=== PATIENT | male | born 1990 | race Caucasian/White ===

== ENCOUNTER 2020-01-15 14:45 | Emergency (ER) | payer OTHER, BC ==
[2020-01-15 15:01] VITALS: BP 136/85; PULSE 71
[2020-01-15] MEDS ORDERED: Diphtheria,Pertussis(Acell),Tetanus Vaccine 0.5 ML SDV IM ONE (15:04)
[2020-01-15] MEDS ORDERED: Doxycycline 100 MG Tab PO ONE (15:05)
[2020-01-15] MEDS ORDERED: Acetaminophen 500 MG Tab PO ONE (15:08)
--- NOTE | 2020-01-15 15:10 | EDM.PDOC ---
ED HPI GENERAL MEDICAL PROBLEM - General Chief Complaint: Laceration Stated Complaint: CUT FINGER Time Seen by Provider: 01/15/20 15:00 Source of Information: Reports: Patient History Limitations: Reports: No Limitations - History of Present Illness INITIAL COMMENTS - FREE TEXT/NARRATIVE: was at work and finger got caught between metal and sander and buffer sustained injury tot he nail of the right 3rd finger , Avulsion of the whole nail occured has minimal bleeding from the site currently Onset: Today Onset Date: 01/15/20 Duration: Other (stable) Location: Reports: Upper Extremity, Right (right 3rd finger injury) Quality: Reports: Ache, Dull Severity: Moderate Improves with: Reports: Cold Therapy, Immobilization Worsens with: Reports: Movement Context: Reports: Trauma (at work) Associated Symptoms: Reports: No Other Symptoms Right middle finger Pain Score (Numeric/FACES): 8 - Related Data Allergies Allergy/AdvReac Type Severity Reaction Status Date / Time Penicillins Allergy Hives Verified 01/15/20 14:57 Home Meds: Home Meds Fexofenadine [Kizzy] 180 mg PO DAILY 01/15/20 [History] Mupirocin Oint [Bactroban Oint] 22 gm TP TID #1 tube 01/15/20 [Rx] lisinopriL [Lisinopril] 40 mg PO DAILY 01/15/20 [History] Past Medical History Cardiovascular History: Reports: Hypertension Other Cardiovascular History: TACHYCARDIA Genitourinary History: Reports: Other (See Below) Other Genitourinary History: PKD - Infectious Disease History Infectious Disease History: Reports: Chicken Pox - Past Surgical History HEENT Surgical History: Reports: Adenoidectomy, Myringotomy w Tube(s), Radial Keratotomy, Tonsillectomy GI Surgical History: Reports: Appendectomy Social & Family History - Family History Other Family History: POLYCYSTIC KIDNEY DISEASE - Tobacco Use Smoking Status *Q: Never Smoker Second Hand Smoke Exposure: No - Caffeine Use Caffeine Use: Reports: Coffee - Recreational Drug Use Recreational Drug Use: No ED ROS GENERAL - Review of Systems Review Of Systems: Comprehensive ROS is negative, except as noted in HPI. Constitutional: Reports: No Symptoms HEENT: Reports: No Symptoms ED EXAM, SKIN/RASH Exam: See Below Exam Limited By: No Limitations General Appearance: Alert, WD/WN, No Apparent Distress Eye Exam: Bilateral Eye: EOMI Ears: Normal External Exam, Normal Canal Throat/Mouth: Normal Inspection Head: Atraumatic, Normocephalic Neck: Supple Respiratory/Chest: No Respiratory Distress Extremities: Normal Inspection, Normal Range of Motion Neurological: Alert, Oriented Skin: Wound/Incision (right 3rd finger with abscent nail and bleeding in the area that is controlled) Course - Vital Signs Last Recorded V/S: Last Vital Signs Temp 37.0 C 01/15/20 14:45 Pulse 71 01/15/20 14:45 Resp 16 01/15/20 14:45 BP 136/85 01/15/20 14:45 Pulse Ox 98 01/15/20 14:45 - Orders/Labs/Meds Orders: Active Orders 24 hr Category Date Time Status Vaccines to be Administered [RC] PER UNIT ROUTINE Care 01/15/20 15:04 Active Meds: Medications Discontinued Medications Generic Name Dose Route Start Last Admin Trade Name Andrewq PRN Reason Stop Dose Admin Acetaminophen 1,000 mg 01/15/20 15:08 01/15/20 15:13 Tylenol Extra Strength PO 01/15/20 15:09 1,000 mg ONETIME ONE Administration Diphtheria/Tetanus/Acell Pertussis 0.5 ml 01/15/20 15:04 01/15/20 15:13 Adacel IM 01/15/20 15:05 0.5 ml .ONCE ONE Administration Doxycycline Hyclate 100 mg 01/15/20 15:05 01/15/20 15:13 Vibra-Tabs PO 01/15/20 15:06 100 mg ONETIME ONE Administration - Re-Assessments/Exams Free Text/Narrative Re-Assessment/Exam: 01/15/20 15:10 wound cleansed then wound dressing applied Tdap given tolerated well Departure - Departure Time of Disposition: 15:40 Disposition: Home, Self-Care 01 Clinical Impression: Nail avulsion, finger - Discharge Information *PRESCRIPTION DRUG MONITORING PROGRAM REVIEWED*: Not Applicable *COPY OF PRESCRIPTION DRUG MONITORING REPORT IN PATIENT RAMA: Not Applicable Prescriptions: Mupirocin Oint [Bactroban Oint] 22 gm TP TID #1 tube Instructions: Wound Care, Adult Referrals: Belkis Shultz NP [Primary Care Provider] - Forms: ED Department Discharge Additional Instructions: 1) keep current wound dressing on for at least 48hrs then , change daily 2) Applied ointment on daily with dressing 3) Monitor any signs of infection : redness, swelling , pus discharge and return for recheck or see your PCP Sepsis Event Note - Evaluation Sepsis Screening Result: No Definite Risk - Focused Exam Vital Signs: Vital Signs Temp Pulse Resp BP Pulse Ox 01/15/20 14:45 37.0 C 71 16 136/85 98 Date Exam was Performed: 01/15/20 Time Exam was Performed: 16:15 - My Orders Last 24 Hours: My Active Orders 01/15/20 15:04 Vaccines to be Administered [RC] PER UNIT ROUTINE - Assessment/Plan Last 24 Hours: My Active Orders 01/15/20 15:04 Vaccines to be Administered [RC] PER UNIT ROUTINE
== END 2020-01-15 15:40 | disposition home or self-care (01) ==
LOC: FB.ED 14:45
DX: S61.302A Unspecified open wound of right middle finger with damage to nail, initial encounter (principal); Z23 Encounter for immunization; Z88.0 Allergy status to penicillin; W23.1XXA Caught, crushed, jammed, or pinched between stationary objects, initial encounter; Y99.0 Civilian activity done for income or pay
CPT/HCPCS: 90471; 90715; 99000; 99282; A9270-GY

== ENCOUNTER 2020-08-24 11:51 | Emergency (ER) | payer BC, OTHER ==
--- NOTE | 2020-08-24 13:25 | EDM.PDOC ---
ED HPI GENERAL MEDICAL PROBLEM - General Chief Complaint: Respiratory Problem Stated Complaint: COVID Time Seen by Provider: 08/24/20 12:19 Source of Information: Reports: Patient History Limitations: Reports: No Limitations - History of Present Illness INITIAL COMMENTS - FREE TEXT/NARRATIVE: Lauri comes into [facility] ED with sxs of chest soreness, SOB, low grade fever, and worry. He tested Covid 19 POS on August 20. His spouse is also Covid 19 POS, and there are 3 minor children at home. He has some nonproductive cough, no GI upset, and wanted status checked. His 02 sats 97% on RA upon admission. 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 - Related Data Allergies Allergy/AdvReac Type Severity Reaction Status Date / Time Penicillins Allergy Hives/rash Verified 08/24/20 12:09 Home Meds: Home Meds Fexofenadine [Kizzy] 180 mg PO DAILY 01/15/20 [History] Mupirocin Oint [Bactroban Oint] 22 gm TP TID #1 tube 01/15/20 [Rx] lisinopriL [Lisinopril] 40 mg PO DAILY 01/15/20 [History] Past Medical History Cardiovascular History: Reports: Hypertension Other Cardiovascular History: TACHYCARDIA Genitourinary History: Reports: Other (See Below) Other Genitourinary History: PKD - Infectious Disease History Infectious Disease History: Reports: Chicken Pox - Past Surgical History HEENT Surgical History: Reports: Adenoidectomy, Myringotomy w Tube(s), Radial Keratotomy, Tonsillectomy GI Surgical History: Reports: Appendectomy Social & Family History - Family History Family Medical History: No Pertinent Family History Other Family History: POLYCYSTIC KIDNEY DISEASE - Tobacco Use Years of Tobacco use: 5 Packs/Tins Daily: 2 - Caffeine Use Caffeine Use: Reports: Coffee - Recreational Drug Use Recreational Drug Use: No ED ROS GENERAL - Review of Systems Review Of Systems: Comprehensive ROS is negative, except as noted in HPI. ED EXAM, GENERAL - Physical Exam Exam: See Below Exam Limited By: No Limitations General Appearance: Alert, WD/WN, No Apparent Distress, Anxious Eye Exam: Bilateral Eye: EOMI, Normal Inspection, PERRL Ears: Normal External Exam, Normal TMs Nose: Normal Inspection Throat/Mouth: Normal Inspection, Normal Lips, Normal Oropharynx, Normal Voice, No Airway Compromise Head: Normocephalic Neck: Supple Respiratory/Chest: No Respiratory Distress, Lungs Clear, Normal Breath Sounds, No Accessory Muscle Use Cardiovascular: Regular Rate, Rhythm, No Murmur GI/Abdominal: Soft, Non-Tender, No Organomegaly, No Distention, No Mass (Male) Exam: Deferred Rectal (Males) Exam: Deferred Back Exam: Normal Inspection Extremities: Normal Inspection Neurological: Alert, Oriented, CN II-XII Intact, Normal Cognition, Normal Gait, No Motor/Sensory Deficits Psychiatric: Normal Affect, Anxious Skin Exam: Warm, Dry, Intact, Normal Color, No Rash Lymphatic: No Adenopathy Course - Vital Signs Text/Narrative:: Following assessment, I obtained a chest x ray: normal study. A discussion of Covid 19 followed. Last Recorded V/S: Last Vital Signs Temp 35.8 C L 08/24/20 11:51 Pulse 107 H 08/24/20 11:51 Resp 18 08/24/20 11:51 BP 142/91 H 08/24/20 11:51 Pulse Ox 98 08/24/20 11:51 - Orders/Labs/Meds Orders: Active Orders 24 hr Category Date Time Status Chest 1V Frontal [CR] Stat Exams 08/24/20 12:14 Taken Departure - Departure Time of Disposition: 13:05 Disposition: Home, Self-Care 01 Condition: Fair Clinical Impression: COVID-19 virus infection - Discharge Information *PRESCRIPTION DRUG MONITORING PROGRAM REVIEWED*: Not Applicable *COPY OF PRESCRIPTION DRUG MONITORING REPORT IN PATIENT RAMA: Not Applicable Instructions: COVID-19 Frequently Asked Questions, COVID-19: How to Protect Yourself and Others - CDC, Prevent the Spread of COVID-19 if You Are Sick - CDC Referrals: PCP,None [Primary Care Provider] - Forms: ED Department Discharge Additional Instructions: Continue to quarantine yourself. Monitor your temperature and may take Tylenol if you are running a fever. Take over the counter Vitamin-C, Vitamin D and Zinc. Drink plenty of fluids and hydrate yourself. Make a virtual appointment to your Primary Care Provider as needed. Call if you have any questions or if planning to come back to the ER. Sepsis Event Note (ED) - Evaluation Sepsis Screening Result: No Definite Risk - Focused Exam Vital Signs: Vital Signs Temp Pulse Resp BP Pulse Ox 08/24/20 11:51 35.8 C L 107 H 18 142/91 H 98 - Problem List & Annotations (1) COVID-19 virus infection SNOMED Code(s): 004106922 Code(s): U07.1 - COVID-19 Status: Acute Annotation/Comment:: I suggested usual Covid 19 precautions, monitor temps, hydration, and rest. - Problem List Review Problem List Initiated/Reviewed/Updated: Yes - My Orders Last 24 Hours: My Active Orders 08/24/20 12:14 Chest 1V Frontal [CR] Stat - Assessment/Plan Last 24 Hours: My Active Orders 08/24/20 12:14 Chest 1V Frontal [CR] Stat Plan: Follow up with PCP next week.
[2020-08-24 13:56] VITALS: BP 133/88; PULSE 96
--- NOTE | 2020-08-26 12:36 | CR ---
INDICATION: Short of breath. CHEST: AP upright view of the chest was obtained portable 08/24/20 and compared with 10/15/15. The heart did not appear enlarged. A definite active infiltrate or effusion was not identified. No evidence of pulmonary vascular congestion was seen. Evidence of exogenous obesity is noted. IMPRESSION: 1. No acute process. 2. Exogenous obesity. MTDD
== END 2020-08-24 13:18 | disposition home or self-care (01) ==
LOC: FB.ED 11:51
DX: U07.1 COVID-19 (principal); I10 Essential (primary) hypertension; F17.210 Nicotine dependence, cigarettes, uncomplicated; Z88.0 Allergy status to penicillin; Z79.899 Other long term (current) drug therapy
CPT/HCPCS: 71045; 99282; 99284-25

== ENCOUNTER 2021-06-06 22:24 | Emergency (ER) | payer BC ==
--- NOTE | 2021-06-06 22:32 | EDM.PDOC ---
ED HPI GENERAL MEDICAL PROBLEM - General Stated Complaint: NUMBNESS IN CHIN Time Seen by Provider: 06/06/21 22:30 Source of Information: Reports: Patient History Limitations: Reports: No Limitations - History of Present Illness INITIAL COMMENTS - FREE TEXT/NARRATIVE: 31-year-old male who reports at approximately 8:15 PM tonight he was working and he raised his head up and struck his left parietal area against a steel beam. He was wearing a baseball cap. He states that he felt somewhat dazed but there was no loss of consciousness and he has had no nausea or vomiting and there has been no neck pain. He finished his work and went home and approximately 10 PM tonight he was eating something and he noted that his left cheek and along his left jaw was numb. He felt that it was moving appropriately and he had normal control of his tongue. He had no problems speaking and no vision problems. There was no arm or leg weakness. No balance problems. He felt that his mouth was working normally and he had no problems keeping food and water in his mouth. There was no neck pain or stiffness. He had a mild headache on his left parietal area that he would rated as a 1/10. He was concerned about this possibly being something related to his head injury and also concerned that it could be something related to his heart or even a stroke and that prompted him to come to the emergency department for evaluation. There are no other associated signs or symptoms. There are no other modifying factors. Onset: Today (As above) Duration: Constant Location: Reports: Head, Face (Left face) Quality: Reports: Dull Severity: Mild Improves with: Reports: None Worsens with: Reports: None Context: Reports: Trauma Associated Symptoms: Reports: No Other Symptoms Treatments RESOLUTION MANAGER: Reports: Other (see below) (Nothing) - Related Data Allergies Allergy/AdvReac Type Severity Reaction Status Date / Time Penicillins Allergy Hives/rash Verified 06/07/21 00:09 Home Meds: Home Meds lisinopriL [Lisinopril] 40 mg PO DAILY 01/15/20 [History] Loratadine [Claritin] 10 mg PO ASDIRECTED PRN 08/24/20 [History] Albuterol Sulfate [Albuterol Sulfate Hfa] 2 puff INH Q4H PRN 06/07/21 [History] buPROPion HCL [Bupropion Xl] 300 mg PO DAILY 06/07/21 [History] Past Medical History Cardiovascular History: Reports: Hypertension Other Cardiovascular History: TACHYCARDIA Genitourinary History: Reports: Other (See Below) Other Genitourinary History: PKD - Infectious Disease History Infectious Disease History: Reports: Chicken Pox - Past Surgical History HEENT Surgical History: Reports: Adenoidectomy, Myringotomy w Tube(s), Radial Keratotomy, Tonsillectomy GI Surgical History: Reports: Appendectomy Social & Family History - Family History Other Family History: POLYCYSTIC KIDNEY DISEASE - Tobacco Use Tobacco Use Within Last Twelve Months: Vaping - Caffeine Use Caffeine Use: Reports: Coffee - Alcohol Use Alcohol Use History: Yes - Living Situation & Occupation Occupation: Employed ED ROS GENERAL - Review of Systems Review Of Systems: See Below Constitutional: Denies: Fever, Night Sweats, Diaphoresis HEENT: Denies: Eye Discharge, Eye Pain Respiratory: Denies: Shortness of Breath, Hemoptysis Cardiovascular: Denies: Chest Pain, Lightheadedness GI/Abdominal: Denies: Abdominal Pain, Decreased Appetite, Nausea, Stool Incontinence, Vomiting : Denies: Dysuria, Frequency, Hematuria Musculoskeletal: Denies: Neck Pain, Back Pain Skin: Denies: Rash, Erythema Neurological: Reports: Numbness (On left cheek). Denies: Confusion, Dizziness, Headache Psychiatric: Denies: Depression Hematologic/Lymphatic: Denies: Easy Bleeding, Easy Bruising ED EXAM, GENERAL - Physical Exam Exam: See Below General Appearance: Alert, WD/WN, No Apparent Distress Eye Exam: Bilateral Eye: EOMI, Normal Inspection, PERRL Ears: Normal External Exam, Hearing Grossly Normal Ear Exam: Bilateral Ear: Auricle Normal Nose: Normal Inspection, Normal Mucosa, No Blood Throat/Mouth: Normal Inspection, Normal Voice, No Airway Compromise Head: Normocephalic. No: Facial Swelling, Facial Tenderness Neck: Normal Inspection, Supple, Non-Tender, Full Range of Motion Respiratory/Chest: No Respiratory Distress, Lungs Clear, Normal Breath Sounds, No Accessory Muscle Use, Chest Non-Tender Cardiovascular: Normal Peripheral Pulses, Regular Rate, Rhythm, No Murmur Peripheral Pulses: 2+: Radial (L), Radial (R), Dorsalis Pedis (L), Dorsalis Pedis (R) GI/Abdominal: Normal Bowel Sounds, Soft, Non-Tender Back Exam: Normal Inspection, Full Range of Motion, Vertebral Tenderness Extremities: Normal Inspection, Normal Range of Motion, Non-Tender, Normal Capillary Refill Neurological: Alert, Oriented, CN II-XII Intact, Normal Cognition, No Motor/Sensory Deficits Psychiatric: Normal Affect Skin Exam: Warm, Dry, Normal Color, No Rash #1 Interpretation EKG Date: 06/06/21 Time: 23:20 Rhythm: NSR Rate (Beats/Min): 82 [place]: Normal P-Wave: Present QRS: Normal ST-T: Normal QT: Normal Comparison: No Change (No change from an EKG performed on 12/22/2015.) Course - Vital Signs Last Recorded V/S: Last Vital Signs Temp 36.6 C 06/07/21 02:00 Pulse 74 06/07/21 02:00 Resp 18 06/07/21 02:00 BP 129/94 H 06/07/21 02:00 Pulse Ox 98 06/07/21 02:00 - Orders/Labs/Meds Orders: Active Orders 24 hr Category Date Time Status Head wo Cont [CT] Stat Exams 06/06/21 22:50 Taken EKG 12 Lead [EK] Routine Ther 06/06/21 22:50 Ordered Labs: Laboratory Tests 06/06/21 06/06/21 06/06/21 Range/Units 23:05 23:05 23:05 WBC 5.2 (3.2-10.1) x10-3/uL RBC 5.35 (3.90-5.90) x10(6)uL Hgb 15.4 (12.9-17.7) g/dL Hct 46.0 (38.3-50.1) % MCV 86.0 (80.8-98.7) fL MCH 28.7 (27.0-33.3) pg MCHC 33.4 (28.7-35.3) g/dL RDW 13.6 (12.4-15.0) % Plt Count 237 (117-477) x10(3)uL MPV 6.6 L (6.7-11.0) fL Neut % (Auto) 70.3 (40.3-71.8) % Lymph % (Auto) 19.4 (15.8-45.3) % [place] % (Auto) 8.4 (5.5-15.2) % Eos % (Auto) 1.2 (0.1-6.8) % Baso % (Auto) 0.7 (0.3-3.8) % Neut # (Auto) 3.7 (1.7-6.9) x10-3/uL Lymph # (Auto) 1.0 (0.5-4.5) x10-3/uL [place] # (Auto) 0.4 (0.0-1.2) x10-3/uL Eos # (Auto) 0.1 (0.0-0.6) x10-3/uL Baso # (Auto) 0.0 (0.0-0.3) x10-3/uL Sodium 143 (135-145) mmol/L Potassium 3.6 (3.5-5.3) mmol/L Chloride 106 (100-110) mmol/L Carbon Dioxide 29 (21-32) mmol/L BUN 25 H (7-18) mg/dL Creatinine 1.6 H (0.70-1.30) mg/dL Est Cr Clr Drug Dosing TNP Estimated GFR (MDRD) 50 L (>60) BUN/Creatinine Ratio 15.6 (9-20) Glucose 107 (80-116) mg/dL Calcium 8.8 (8.6-10.2) mg/dL Magnesium 1.9 (1.8-2.5) mg/dL Total Bilirubin 0.6 (0.1-1.3) mg/dL AST 16 (5-25) IU/L ALT 25 (12-36) U/L Alkaline Phosphatase 58 (56-112) IU/L Troponin I 6.8 (4.0-60.3) pg/mL Total Protein 7.1 (6.0-8.0) g/dL Albumin 3.8 (3.5-5.2) g/dL Globulin 3.3 g/dL Albumin/Globulin Ratio 1.2 06/07/21 Range/Units 01:05 WBC (3.2-10.1) x10-3/uL RBC (3.90-5.90) x10(6)uL Hgb (12.9-17.7) g/dL Hct (38.3-50.1) % MCV (80.8-98.7) fL MCH (27.0-33.3) pg MCHC (28.7-35.3) g/dL RDW (12.4-15.0) % Plt Count (117-477) x10(3)uL MPV (6.7-11.0) fL Neut % (Auto) (40.3-71.8) % Lymph % (Auto) (15.8-45.3) % [place] % (Auto) (5.5-15.2) % Eos % (Auto) (0.1-6.8) % Baso % (Auto) (0.3-3.8) % Neut # (Auto) (1.7-6.9) x10-3/uL Lymph # (Auto) (0.5-4.5) x10-3/uL [place] # (Auto) (0.0-1.2) x10-3/uL Eos # (Auto) (0.0-0.6) x10-3/uL Baso # (Auto) (0.0-0.3) x10-3/uL Sodium (135-145) mmol/L Potassium (3.5-5.3) mmol/L Chloride (100-110) mmol/L Carbon Dioxide (21-32) mmol/L BUN (7-18) mg/dL Creatinine (0.70-1.30) mg/dL Est Cr Clr Drug Dosing Estimated GFR (MDRD) (>60) BUN/Creatinine Ratio (9-20) Glucose (80-116) mg/dL Calcium (8.6-10.2) mg/dL Magnesium (1.8-2.5) mg/dL Total Bilirubin (0.1-1.3) mg/dL AST (5-25) IU/L ALT (12-36) U/L Alkaline Phosphatase (56-112) IU/L Troponin I 5.7 (4.0-60.3) pg/mL Total Protein (6.0-8.0) g/dL Albumin (3.5-5.2) g/dL Globulin g/dL Albumin/Globulin Ratio - Radiology Interpretation Free Text/Narrative:: CT scan of the head shows normal noncontrast CT appearance of the brain for the patient's age per the [facility] radiologist. - Re-Assessments/Exams Free Text/Narrative Re-Assessment/Exam: 06/07/21 00:05: Patient reports that the numbness on his left cheek and jaw area is less than it was still present. He mild pain over his left parietal area that he would rated as a 1/10.. No problems speaking. No vision problems. No arm or leg weakness. No chest pain. His EKG was normal. All of his blood tests are reassuringly normal except for creatinine of 1.6 which is in keeping with his polycystic kidney disease. Specifically, his troponin was normal. CT scan of his head showed no acute disease I discussed all this with the patient. He has had no fracture or bleeding in his brain. There does not appear to be any stroke. Hi s EKG was normal and his initial troponin was normal and I think it is unlikely that this is cardiac related. However, to be more sure about this I would recommend repeating his troponin 2 hours after the initial troponin. The patient is in agreement with this and the plan will be to repeat his troponin 1:05 AM and if that is negative and he has remained neurologically stable as well, he should be able to be discharged home. 06/07/21 01:58: Repeat troponin was normal. Patient reports he still has the numbness in the left cheek and along the jaw but it is better than it was earlier. He has no chest pain. He has no arm or leg weakness. He has no headache. I'm unsure why he is having the left facial dysesthesias. It does not appear to be stroke and it does not appear to be anything related to his heart. This with the patient and I feel that discharge is appropriate now. The patient is in agreement with this plan. Precautions and reasons to return to the emergency department were discussed with patient will use in the emergency department of her detailed in the patient's discharge instructions. Departure - Departure Time of Disposition: 02:05 Disposition: Home, Self-Care 01 Condition: Good (Stable) Clinical Impression: Numbness and tingling of left side of face - Discharge Information Instructions: Paresthesia, [id number] Referrals: PCP,None [Primary Care Provider] - Forms: ED Department Discharge Additional Instructions: All of your blood tests were reassuring. Your creatinine or measure of kidney function was somewhat elevated but this is related to your chronic condition with your kidneys. Your EKG was normal. The CT scan of your head was normal. Your heart enzyme tests were normal when checked over time 2. I am unsure why you are having the numbness over the left side of your face but it does not appear to be anything related to a stroke or to a problem with your heart. To follow-up with your primary provider this next week. Drink plenty of fluids. Rest. No work for the next 2 days. Back to the emergency department for headache, arm or leg weakness, trouble swallowing, trouble speaking, vision p roblems, spreading area of numbness or any other concerning signs or symptoms - My Orders Last 24 Hours: My Active Orders 06/06/21 22:50 Head wo Cont [CT] Stat EKG 12 Lead [EK] Routine - Assessment/Plan Last 24 Hours: My Active Orders 06/06/21 22:50 Head wo Cont [CT] Stat EKG 12 Lead [EK] Routine
[2021-06-07 02:04] VITALS: BP 129/94; PULSE 74
== END 2021-06-07 02:30 | disposition home or self-care (01) ==
LOC: FB.ED 22:24
DX: R20.0 Anesthesia of skin (principal); R20.2 Paresthesia of skin; I10 Essential (primary) hypertension; Z88.0 Allergy status to penicillin; Z79.899 Other long term (current) drug therapy
CPT/HCPCS: 36415; 70450; 80053; 83735; 84484; 85025; 93005; 99284-25

== ENCOUNTER 2022-01-22 21:17 | Emergency (ER) | payer BC ==
[2022-01-22] MEDS ORDERED: Meclizine 25 MG Tab PO STA (21:41)
[2022-01-22 22:55] VITALS: BP 150/90; PULSE 74
== END 2022-01-22 22:35 | disposition home or self-care (01) ==
LOC: FB.ED 21:17
DX: H81.10 Benign paroxysmal vertigo, unspecified ear (principal); I10 Essential (primary) hypertension; Z88.0 Allergy status to penicillin; Z88.1 Allergy status to other antibiotic agents; Z72.0 Tobacco use
CPT/HCPCS: 99283; A9270-GY

== ENCOUNTER 2022-09-24 20:13 | Emergency (ER) | payer BC ==
[2022-09-24 22:07] VITALS: BP 146/93; PULSE 106
== END 2022-09-24 21:15 | disposition home or self-care (01) ==
LOC: FB.ED 20:13
DX: R09.81 Nasal congestion (principal); I10 Essential (primary) hypertension; Z88.1 Allergy status to other antibiotic agents; Z88.0 Allergy status to penicillin; Z79.899 Other long term (current) drug therapy
CPT/HCPCS: 99283

== ENCOUNTER 2023-08-13 13:37 | Emergency (ER) | payer BC ==
[2023-08-13] MEDS ORDERED: Aluminum Hydroxide/Magnesium Hydroxide Susp 30 ML Cup PO STA (13:59)
[2023-08-13] MEDS ORDERED: Lidocaine 2% Viscous Solution 15 ML UD PO ONE (14:00)
[2023-08-13 15:18] VITALS: BP 135/87; PULSE 85
== END 2023-08-13 14:48 | disposition home or self-care (01) ==
LOC: FB.ED 13:37
DX: K21.9 Gastro-esophageal reflux disease without esophagitis (principal); I10 Essential (primary) hypertension; E66.9 Obesity, unspecified; Z68.30 Body mass index [BMI] 30.0-30.9, adult; Z86.16 Personal history of COVID-19; Z88.0 Allergy status to penicillin; Z88.1 Allergy status to other antibiotic agents; Z79.899 Other long term (current) drug therapy
CPT/HCPCS: 99283; A9270-GY

== ENCOUNTER 2024-06-15 23:13 | Emergency (ER) | payer BC ==
[2024-06-15 23:49] VITALS: BP 148/93; PULSE 82
== END 2024-06-16 00:03 | disposition home or self-care (01) ==
LOC: FB.ED 23:13
DX: K64.5 Perianal venous thrombosis (principal); E66.9 Obesity, unspecified; I10 Essential (primary) hypertension; Z86.16 Personal history of COVID-19; Z79.899 Other long term (current) drug therapy; Z88.0 Allergy status to penicillin; Z88.1 Allergy status to other antibiotic agents
CPT/HCPCS: 46083; 99282-25; 99283